=== PATIENT | female | born 1965 | race Caucasian/White ===

== ENCOUNTER 2017-01-04 13:24 | Emergency (ER) | payer MEDICARE ==
[~2017-01-04] VITALS: Ht 162.6 cm; Wt 90.0 kg
[2017-01-04 13:28] VITALS: BP 143/88; PULSE 83; RESP 16; TEMP 98.2; O2SAT 96
[2017-01-04] MEDS ORDERED: NORV2.5T PO (13:42)
[2017-01-04] MEDS ORDERED: SYNT112T PO (13:42)
[2017-01-04] MEDS ORDERED: CHOLESTEROL MED (13:42)
--- NOTE | 2017-01-04 15:09 | RADRPT ---
EXAM DATE/TIME: 01/04/2017 14:34 [facility] COMPARISON: No previous studies available for comparison. INDICATIONS : Fell and hit back of head. Head and neck pain. RADIATION DOSE: 60.64 CTDIvol (mGy) MEDICAL HISTORY : Hypertension. Cerebral palsy SURGICAL HISTORY : Cerebral implant ENCOUNTER: Initial ACUITY: 2 days PAIN SCALE: 4/10 LOCATION: occipital TECHNIQUE: Multiple contiguous axial images were obtained of the head. Using automated exposure control and adj ustment of the mA and/or kV according to patient size, radiation dose was kept as low as reasonably a chievable to obtain optimal diagnostic quality images. DICOM format image data is available electro nically for review and comparison. FINDINGS: There is no evidence for intracranial hemorrhage, mass effect, mass lesions, edema, or extra-axial fl uid collections. The visualized bony structures appear intact. The ventricles are normal size for t he patient's age. There are no signs of acute infarction for technique. Cerebral implants are presen t bilaterally posteriorly. CONCLUSION: Unremarkable study. Jaja Lacy MD on January 04, 2017 at 14:59 Board Certified Radiologist. This report was verified electronically.
--- NOTE | 2017-01-04 15:12 | RADRPT ---
EXAM DATE/TIME: 01/04/2017 14:49 [facility] COMPARISON: No previous studies available for comparison. INDICATIONS : Low back pain after falling MEDICAL HISTORY : Cerebral palsy SURGICAL HISTORY : Cerebral implant ENCOUNTER: Initial ACUITY: 1 day PAIN SCORE: 9/10 LOCATION: Lumbar spine FINDINGS: No appreciable compression deformities, spondylolisthesis, or spondylolysis is seen. Slight degenera tive changes are seen within the disc space and facets at L5-S1. Chronic atherosclerotic calcificatio ns are seen without any definite aneurysmal dilatations for technique. CONCLUSION: Chronic changes L5-S1. Jaja Lacy MD on January 04, 2017 at 15:10 Board Certified Radiologist. This report was verified electronically.
--- NOTE | 2017-01-04 15:17 | RADRPT ---
EXAM DATE/TIME: 01/04/2017 14:34 [facility] COMPARISON: No previous studies available for comparison. INDICATIONS : Fell and hit back of head. Head and neck pain. RADIATION DOSE: 26.17 CTDIvol (mGy) MEDICAL HISTORY : Hypertension. Cerebral palsy SURGICAL HISTORY : Cerebral implant ENCOUNTER: Initial ACUITY: 2 days PAIN SCALE: 4/10 LOCATION: Bilateral neck TECHNIQUE: Volumetric scanning of the cervical spine was performed. Multiplanar reconstructions in the sagittal, coronal and oblique axial planes were performed. Using automated exposure control and adjustment o f the mA and/or kV according to patient size, radiation dose was kept as low as reasonably achievable to obtain optimal diagnostic quality images. DICOM format image data is available electronically f or review and comparison. FINDINGS: VERTEBRAE: Normal vertebral body height. ALIGNMENT: No evidence of subluxation. A spinal stimulator lead is seen overlying the occiput C2-C3: Mild central bulge. No flattening of the cord. Neural foramina are patent bilaterally. C3-C4: The bony spinal canal is normal in size. No evidence of disc bulge or herniation. The neural forami na are bilaterally patent. C4-C5: There is disc space narrowing with a broad-based disc osteophyte complex eccentric to the left. Narro wing of the lateral recesses bilaterally but more pronounced on the left. Flattening of the ventral p ortion of the cord. Anterior to posterior dimension of the central canal in the midline is 10 mm. Unc overtebral hypertrophy without significant narrowing of the neural foramina. C5-C6: There is disc space narrowing with a broad-based disc osteophyte complex. Flattening of the ventral p ortion of the cord. Central canal measures 8 mm in the midline. Bilateral bony uncovertebral hypertro phy contributing to narrowing of the neural foramina and lateral recesses bilaterally. C6-C7: No disc bulge or protrusion. Central canal is patent. Bony uncovertebral hypertrophy on the left caus es moderate narrowing the left lateral recess and left neural foramen. The right are patent.C7-T1: The bony spinal canal is normal in size. No evidence of disc bulge or herniation. The neural forami na are bilaterally patent. CONCLUSION: 1. No fracture or dislocation. 2. Multilevel degenerative changes as detailed above. Jakob Vargas Jr., MD on January 04, 2017 at 15:11 Board Certified Radiologist. This report was verified electronically.
--- NOTE | 2017-01-04 15:30 | PD ---
HPI Chief Complaint: Back/ Neck Pain or Injury Time Seen by Provider: 14:10 Travel History International Travel<30 days: No Contact w/Intl Traveler<30days: No Traveled to known affect area: No History of Present Illness HPI 51-year-old female with history of cerebral palsy and a brain stimulator presents to the emergency room for evaluation of headache, neck pain, and low back pain after slip and fall yesterday. Patient was trying out her new handrail in her bathtub when she slipped on the tile and fell backwards striking her head on the tile and then landing on her coccyx/low back. She states she had immediate headache and neck pain. Back pain started a little later and began radiating down her right lower extremity. Her friend was with her and states she appeared dazed for about 30 minutes to an hour but has been normal since. Patient denies extreme headache, nausea, vomiting. She is not on any blood thinners. Denies upper or lower extremity paresthesias, saddle anesthesia, or loss of bowel or bladder control. She has taken Tylenol with moderate relief in symptoms. She normally ambulates with a walker and has been able to ambulate since falling. PFSH Past Medical History Hx Anticoagulant Therapy: No Cardiovascular Problems: Yes (HTN, CHOL) High Cholesterol: Yes Diabetes: No Hypertension: Yes Medical other: Yes (CEREBRAL PALSY, PREDIABETIC) Thyroid Disease: Yes ?: Not Past Surgical History Other Surgery: Yes (CEREBRAL IMPLANT) Social History Alcohol Use: No Tobacco Use: No Substance Use: No Allergies-Medications (Allergen,Severity, Reaction): Coded Allergies: Penicillin (Verified Allergy, Severe, 01/04/17) Reported Meds & Prescriptions Reported Meds & Active Scripts Active Reported [Cholesterol Med] Unknown Dose Norvasc (Amlodipine Besylate) 2.5 Mg Tab Unknown Dose PO DAILY Synthroid (Levothyroxine Sodium) 112 Mcg Tab 112 Mcg PO DAILY Review of Systems Except as stated in HPI: all other systems reviewed are Neg Physical Exam Narrative GENERAL: Well-developed, well-nourished female in no acute distress. Afebrile. Ambulatory. SKIN: Warm and dry. No erythema or ecchymosis. HEAD: Atraumatic. Normocephalic. No florian sign or raccoon eyes. EYES: PERRL, EOMI, no discharge or injection. No scleral icterus. ENT: Mucosa pink and moist. No erythema or exudates. No uvular edema. No uvular , palatal, or tonsillar deviation. Airway patent. EARS: Bilateral pinnae and external canals appear within normal limits. Bilateral tympanic membranes without erythema, dullness or perforation. No hemotympanum. NECK: Trachea midline. No JVD. No midline tenderness. Full range of motion. CARDIOVASCULAR: Regular rate and rhythm. No murmur appreciated. RESPIRATORY: No accessory muscle use. Clear to auscultation. Breath sounds equal bilaterally. No crackles, rales, wheezes, or rhonchi. BACK: No CVA tenderness. No rash. No point tenderness on palpation of the spine. NEUROLOGICAL: Awake and alert. Cranial nerves 2 through 12 intact. Motor grossly within normal limits. Normal speech. Strength 5/5 and equal in upper and lower extremities. 2+ patellar and Achilles reflexes and equal bilaterally. PSYCHIATRIC: Appropriate mood and affect; insight and judgment normal. Data Data Last Documented VS Vital Signs Date Time Temp Pulse Resp B/P Pulse Ox O2 Delivery O2 Flow Rate FiO2 01/04/17 13:28 98.2 83 16 143/[address] Brain W/O Iv Contrast(Rout) (01/04/17 ) Ct Cerv Spine W/O Contrast (01/04/17 ) Spine, Lumbar - Ltd (Ap & Lat) (01/04/17 ) MDM Medical Decision Making Medical Screen Exam Complete: Yes Emergency Medical Condition: Yes Medical Record Reviewed: Yes Differential Diagnosis Muscle spasm, headache, back pain, cervical strain, fracture, dislocation Narrative Course 51-year-old female with history of cerebral palsy presents to the emergency room for evaluation of headache, neck pain, and low back pain after slip and fall last night. Patient was kneeling when she fell backwards striking her head on tile before landing on her buttocks/low back. Immediate headache and neck pain and back pain started low while later. No focal neurological deficits. Her friend observed the whole thing and denies loss of consciousness. She was acting days for 30 minutes afterward but not since. She is not on blood thinners. CT of the brain is negative for acute abdomen. CT of the cervical spine is negative and lumbar back x-ray is negative. Patient is ambulatory with a walker. No extreme tenderness to palpation of the midline spine. Likely contusion and muscle strain. Discharged with instructions to take ibuprofen and follow up with a primary care physician or return for worsening symptoms. She understands and agrees to plan. Diagnosis Primary Impression: Acute headache Qualified Code: G44.319 - Acute post-traumatic headache, not intractable Additional Impressions: Low back pain Qualified Code: M54.41 - Acute midline low back pain with right-sided sciatica Cervical strain, acute Qualified Code: S16.1XXA - Cervical strain, acute, initial encounter Referrals: Primary Care Physician Patient Instructions: Acute Headache (ED), Back Pain (ED), Cervical Strain (ED) , General Instructions Additional Instructions: Rest and drink plenty of fluids. Take ibuprofen with food as directed, as needed for pain. Apply ice to the affected area for 20 minutes at a time, as needed for pain and swelling. Follow-up with a primary care physician. Return to the emergency room for worsening symptoms. Disposition: 01 DISCHARGE HOME Condition: Stable Lennie Monet Jan 04, 2017 15:30
== END 2017-01-04 15:47 | disposition home or self-care (01) ==
LOC: PHEFT 13:24
DX: G44.319 Acute post-traumatic headache, not intractable (principal); M54.41 Lumbago with sciatica, right side; S16.1XXA Strain of muscle, fascia and tendon at neck level, initial encounter; W18.2XXA Fall in (into) shower or empty bathtub, initial encounter; Y92.002 Bathroom of unspecified non-institutional (private) residence as the place of occurrence of the external cause
CPT/HCPCS: 70450; 72100; 72125; 99285

== ENCOUNTER 2017-04-11 19:55 | Emergency (ER) | payer MEDICARE ==
[~2017-04-11] VITALS: Ht 162.6 cm; Wt 87.6 kg
[~2017-04-11 19:55] MED LIST: CHOLESTEROL MED; NORV2.5T PO; SYNT112T PO
[2017-04-11 19:58] VITALS: BP 145/83; PULSE 103; RESP 16; TEMP 99; O2SAT 96
[2017-04-11 20:19] VITALS: BP 145/83; PULSE 103; RESP 16; TEMP 99
[2017-04-11] MEDS ORDERED: SODIUM CHLOR 0.9% 1000 ML INJ 1,000 ML IV SCH (20:23)
[2017-04-11] MEDS ORDERED: SODIUM CHLORIDE 0.9% FLUSH 10 ML FLUSH IV FLUSH PRN (20:30)
[2017-04-11] MEDS ORDERED: ONDANSETRON HCL 4 MG/2 ML VIAL IVP ONE (20:30)
[2017-04-11] MEDS ORDERED: MORPHINE SULFATE 4 MG/ML INJ IV PUSH ONE (20:30)
--- NOTE | 2017-04-11 20:35 | PD ---
HPI Chief Complaint: Abdominal Pain Time Seen by Provider: 20:11 Travel History International Travel<30 days: No Contact w/Intl Traveler<30days: No Traveled to known affect area: No History of Present Illness HPI The patient is a 52-year-old female who presents to the emergency department with her partner for abdominal pain. The patient notes a 2 day history of lower abdominal pain is started a left lower quadrant and now radiates to the suprapubic and right lower quadrant. The pain is moderate, worse with palpation, associated with nausea and decreased appetite. The patient denies any vomiting, diarrhea, or constipation. She does note mild urinary frequency but denies any dysuria or hematuria. The patient denies any previous abdominal surgeries. The patient denies , is currently perimenopausal, last menstrual cycle was several months ago. The patient's female partner also states there is no chance of . The patient does note subjective low-grade fevers without chills or sweats. She does also note decreased appetite over the last 2 days. Symptoms are moderate, worse with palpation, and there are no current alleviating factors. PFSH Past Medical History Hx Anticoagulant Therapy: No Cardiovascular Problems: Yes (HTN, CHOL) High Cholesterol: Yes Diabetes: No Hypertension: Yes Thyroid Disease: Yes ?: Not Past Surgical History Other Surgery: Yes (CEREBRAL IMPLANT) Social History Alcohol Use: No Tobacco Use: No Substance Use: No Allergies-Medications (Allergen,Severity, Reaction): Coded Allergies: penicillin G (Verified Allergy, Severe, 04/11/17) Reported Meds & Prescriptions Reported Meds & Active Scripts Active Reported [Cholesterol Med] Unknown Dose Norvasc (Amlodipine Besylate) 2.5 Mg Tab Unknown Dose PO DAILY Synthroid (Levothyroxine Sodium) 112 Mcg Tab 112 Mcg PO DAILY Review of Systems Except as stated in HPI: all other systems reviewed are Neg General / Constitutional: Positive: Fever (subjective) Cardiovascular: No: Chest Pain or Discomfort Respiratory: No: Shortness of Breath Gastrointestinal: Positive: Nausea, Abdominal Pain, No: Vomiting, Diarrhea Genitourinary: Positive: Urgency, Frequency, No: Dysuria, Hematuria Skin: No Rash Physical Exam Narrative GENERAL: Awake, alert, pleasant 52-year-old female who appears her stated age and is in no acute respiratory distress. SKIN: Focused skin assessment warm/dry. HEAD: Atraumatic. Normocephalic. EYES: Pupils equal and round. No scleral icterus. No injection or drainage. ENT: No nasal bleeding or discharge. Mucous membranes pink and moist. NECK: Trachea midline. No JVD. CARDIOVASCULAR: Regular rate and rhythm. No murmur appreciated. RESPIRATORY: No accessory muscle use. Clear to auscultation. Breath sounds equal bilaterally. GASTROINTESTINAL: Abdomen soft, tender to palpation left lower quadrant and suprapubic region, mild right lower quadrant tenderness. No guarding or rigidity. Back: No CVA tenderness. MUSCULOSKELETAL: No obvious deformities. No clubbing. No cyanosis. No edema. NEUROLOGICAL: Awake and alert. No obvious cranial nerve deficits. Motor grossly within normal limits. Slightly stuttering speech. PSYCHIATRIC: Appropriate mood and affect; insight and judgment normal. Data Data Last Documented VS Vital Signs Date Time Temp Pulse Resp B/P (MAP) Pulse Ox O2 Delivery O2 Flow Rate FiO2 04/11/17 21:53 81 16 128/69 (88) 93 Room Air 04/11/17 20:19 99.0 Orders Orders Complete Blood Count With Diff (04/11/17 20:23) Comprehensive Metabolic Panel (04/11/17 20:23) Lipase (04/11/17 20:23) Urinalysis - C+S If Indicated (04/11/17 20:23) Ct Abd/Pel W/O Iv Contrast (04/11/17 20:23) Iv Access Insert/Monitor (04/11/17 20:23) Ecg Monitoring (04/11/17 20:23) Oximetry (04/11/17 20:23) Morphine Inj (Morphine Inj) (04/11/17 20:30) Ondansetron Inj (Zofran Inj) (04/11/17 20:30) Sodium Chlor 0.9% 1000 Ml Inj (Ns 1000 M (04/11/17 20:23) Sodium Chloride 0.9% Flush (Ns Flush) (04/11/17 20:30) Urine Culture (04/11/17 20:33) Sodium Chlor 0.9% 1000 Ml Inj (Ns 1000 M (04/11/17 21:15) Ketorolac Inj (Toradol Inj) (04/11/17 21:45) Ciprofloxacin (Cipro) (04/11/17 22:15) Metronidazole 500 Mg Inj (Flagyl 500 Mg (04/11/17 22:15) Labs Laboratory Tests Test 04/11/17 20:33 White Blood Count 14.7 TH/MM3 Red Blood Count 5.46 MIL/MM3 Hemoglobin 16.3 GM/DL Hematocrit 48.2 % Mean Corpuscular Volume 88.3 FL Mean Corpuscular Hemoglobin 29.9 PG Mean Corpuscular Hemoglobin Concent 33.9 % Red Cell Distribution Width 11.7 % Platelet Count 275 TH/MM3 Mean Platelet Volume 9.0 FL Neutrophils (%) (Auto) 65.9 % Lymphocytes (%) (Auto) 21.4 % Monocytes (%) (Auto) 7.1 % Eosinophils (%) (Auto) 2.5 % Basophils (%) (Auto) 3.1 % Neutrophils # (Auto) 9.7 TH/MM3 Lymphocytes # (Auto) 3.1 TH/MM3 Monocytes # (Auto) 1.0 TH/MM3 Eosinophils # (Auto) 0.4 TH/MM3 Basophils # (Auto) 0.5 TH/MM3 CBC Comment DIFF FINAL Differential Comment Urine Color YELLOW Urine Turbidity CLEAR Urine pH 5.5 Urine Specific Celeste 1.023 Urine Protein NEG mg/dL Urine Glucose (UA) NEG mg/dL Urine Ketones NEG mg/dL Urine Occult Blood TRACE Urine Nitrite NEG Urine Bilirubin NEG Urine Leukocyte Esterase NEG Urine Squamous Epithelial Cells > 8 /hpf Urine Bacteria MOD /hpf Urine Mucus MOD /lpf Microscopic Urinalysis Comment CULTURE INDICATED Blood Urea Nitrogen 18 MG/DL Creatinine 0.98 MG/DL Random Glucose 112 MG/DL Total Protein 8.3 GM/DL Albumin 3.6 GM/DL Calcium Level 9.8 MG/DL Alkaline Phosphatase 106 U/L Aspartate Amino Transf (AST/SGOT) 20 U/L Alanine Aminotransferase (ALT/SGPT) 26 U/L Total Bilirubin 0.5 MG/DL Sodium Level 137 MEQ/L Potassium Level 4.0 MEQ/L Chloride Level 100 MEQ/L Carbon Dioxide Level 27.8 MEQ/L Anion Gap 9 MEQ/L Estimat Glomerular Filtration Rate 59 ML/MIN Lipase 214 U/L [facility] Medical Decision Making Medical Screen Exam Complete: Yes Emergency Medical Condition: Yes Medical Record Reviewed: Yes Interpretation(s) Laboratory Tests Test 04/11/17 20:33 White Blood Count 14.7 TH/MM3 Red Blood Count 5.46 MIL/MM3 Hemoglobin 16.3 GM/DL Hematocrit 48.2 % Mean Corpuscular Volume 88.3 FL Mean Corpuscular Hemoglobin 29.9 PG Mean Corpuscular Hemoglobin Concent 33.9 % Red Cell Distribution Width 11.7 % Platelet Count 275 TH/MM3 Mean Platelet Volume 9.0 FL Neutrophils (%) (Auto) 65.9 % Lymphocytes (%) (Auto) 21.4 % Monocytes (%) (Auto) 7.1 % Eosinophils (%) (Auto) 2.5 % Basophils (%) (Auto) 3.1 % Neutrophils # (Auto) 9.7 TH/MM3 Lymphocytes # (Auto) 3.1 TH/MM3 Monocytes # (Auto) 1.0 TH/MM3 Eosinophils # (Auto) 0.4 TH/MM3 Basophils # (Auto) 0.5 TH/MM3 CBC Comment DIFF FINAL Differential Comment Urine Color YELLOW Urine Turbidity CLEAR Urine pH 5.5 Urine Specific Celeste 1.023 Urine Protein NEG mg/dL Urine Glucose (UA) NEG mg/dL Urine Ketones NEG mg/dL Urine Occult Blood TRACE Urine Nitrite NEG Urine Bilirubin NEG Urine Leukocyte Esterase NEG Urine Squamous Epithelial Cells > 8 /hpf Urine Bacteria MOD /hpf Urine Mucus MOD /lpf Microscopic Urinalysis Comment CULTURE INDICATED Blood Urea Nitrogen 18 MG/DL Creatinine 0.98 MG/DL Random Glucose 112 MG/DL Total Protein 8.3 GM/DL Albumin 3.6 GM/DL Calcium Level 9.8 MG/DL Alkaline Phosphatase 106 U/L Aspartate Amino Transf (AST/SGOT) 20 U/L Alanine Aminotransferase (ALT/SGPT) 26 U/L Total Bilirubin 0.5 MG/DL Sodium Level 137 MEQ/L Potassium Level 4.0 MEQ/L Chloride Level 100 MEQ/L Carbon Dioxide Level 27.8 MEQ/L Anion Gap 9 MEQ/L Estimat Glomerular Filtration Rate 59 ML/MIN Lipase 214 U/L CT abdomen and pelvis without contrast reveals acute diverticulitis. No signs of perforation or abscess formation. Differential Diagnosis Differential diagnosis includes diverticulitis, nephrolithiasis, hydronephrosis , pyelonephritis, ovarian cyst, atypical appendicitis, UTI. Narrative Course IV was established, labs are drawn and sent, and the patient was placed on cardiac telemetry monitoring and continuous pulse oximetry monitoring. The patient was administered morphine, Zofran, and IV fluids. Noncontrast CT of the abdomen and pelvis was ordered. Patient's white count is slightly elevated , hemoglobin and hematocrit are elevated, most likely secondary to hemoconcentration from dehydration. LFTs and lipase are unremarkable. UA reveals moderate bacteria but no wbc's. CT the abdomen and pelvis reveals acute diverticulitis with no signs of perforation or abscess formation. The patient was reevaluated, still had mild pain, therefore, was administered Toradol intravenously. The patient's pain improved. The patient received Flagyl IV and Cipro by mouth. She will be discharged home on Cipro, Flagyl, and pain medications. The patient states she takes Tylenol 3 without difficulty , therefore, we'll be prescribed Tylenol 3. She will be provided a copy of her CT results and lab results at discharge. She is advised to follow-up with her primary physician and return if symptoms worsen or progress. Diagnosis Primary Impression: Diverticulitis Qualified Codes: K57.32 - Diverticulitis of large intestine without perforation or abscess without bleeding Patient Instructions: General Instructions Additional Instructions: Please provide the patient a copy of her CT results and lab results at discharge. Follow-up with your primary physician. Return if symptoms worsen or progress. Clear liquid diet and advance as tolerated. Medications as directed. Med/Other Pt SpecificInfo: Prescription(s) given Scripts Acetaminophen-Codeine (Tylenol-Codeine #3) 300-30 mg Tab 1 TAB PO Q4H Y for PAIN, #20 TAB 0 Refills Prov: Margarito Lockhart MD 04/11/17 Metronidazole (Flagyl) 500 Mg Tab 500 MG PO BID for Infection for 7 Days, #14 TAB 0 Refills Prov: Margarito Lockhart MD 04/11/17 Ciprofloxacin (Cipro) 500 Mg Tab 500 MG PO BID for Infection for 7 Days, #14 TAB 0 Refills Prov: Margarito Lockhart MD 04/11/17 Disposition: 01 DISCHARGE HOME Condition: Stable Margarito Lockhart MD Apr 11, 2017 20:35
[2017-04-11 20:51] LABS: AUTOMATED NEUTROPHIL # 9.7 TH/MM3 (1.8-7.7); BASOPHIL # 0.5 TH/MM3 (0-0.2); BASOPHIL % 3.1 % (0.0-2.0); EOSINOPHIL # 0.4 TH/MM3 (0-0.4); EOSINOPHIL % 2.5 % (0.0-4.0); HEMATOCRIT 48.2 % (35.0-46.0); HEMO FLAGS DIFF FINAL; LYMPH % 21.4 % (9.0-44.0); LYMPHOCYTE # 3.1 TH/MM3 (1.0-4.8); MEAN CELL VOLUME 88.3 FL (80.0-100.0); MEAN CORPUSCULAR HEMOGLOBIN 29.9 PG (27.0-34.0); MEAN CORPUSCULAR HGB CONC 33.9 % (32.0-36.0); MONO % 7.1 % (0.0-8.0); NEUT % 65.9 % (16.0-70.0); PLATELET COUNT 275 TH/MM3 (150-450); RED BLOOD COUNT 5.46 MIL/MM3 (4.00-5.30); RED CELL DISTRIBUTION WIDTH 11.7 % (11.6-17.2); WHITE BLOOD COUNT 14.7 TH/MM3 (4.0-11.0)
[2017-04-11 20:54] LABS: BLOOD, URINE TRACE (NEG); GLUCOSE,URINE NEG (NEG); KETONE, URINE NEG (NEG); NITRITE,URINE NEG (NEG); PH, URINE 5.5 (5.0-8.5)
[2017-04-11 20:56] LABS: CHLORIDE 100 MEQ/L (98-107); SODIUM (NA) 137 MEQ/L (136-145)
[2017-04-11 20:58] LABS: URINE COLOR YELLOW (YELLW/STRAW)
[2017-04-11 20:59] LABS: MUCUS URINE MOD /lpf (OCC)
[2017-04-11 21:00] LABS: ANION GAP 9 MEQ/L (5-15); BACTERIA, URINE MOD /hpf; BICARBONATE 27.8 MEQ/L (21.0-32.0); SQUAMOUS EPITHELIAL CELL URINE > 8 /hpf (0-5)
[2017-04-11 21:01] LABS: BLOOD UREA NITROGEN 18 MG/DL (7-18); COMMENT (UR) CULTURE INDICATED; CULTURE IF INDICATED CULTURE INDICATED
[2017-04-11 21:03] LABS: ALT (GPT) 26 U/L (10-53); AST (GOT) 20 U/L (15-37); GLOMERULAR FILTRATION RATE 59 ML/MIN (>89)
[2017-04-11 21:05] LABS: TOTAL BILIRUBIN ADULT 0.5 MG/DL (0.2-1.0)
[2017-04-11 21:06] VITALS: BP 143/82; PULSE 86; RESP 18; O2SAT 96
[2017-04-11 21:06] LABS: ALKALINE PHOSPHATASE 106 U/L (45-117)
[2017-04-11] MEDS ORDERED: SODIUM CHLOR 0.9% 1000 ML INJ 1,000 ML IV ONE (21:15)
[2017-04-11] MEDS ORDERED: KETOROLAC TROMETHAMINE 30 MG/ML (IVP) VIAL IV PUSH ONE (21:45)
[2017-04-11 21:53] VITALS: BP 128/69; PULSE 81; RESP 16; O2SAT 93
--- NOTE | 2017-04-11 22:07 | RADRPT ---
EXAM DATE/TIME: 04/11/2017 21:31 [facility] COMPARISON: No previous studies available for comparison. INDICATIONS : Left lower quadrant pain. ORAL CONTRAST: No oral contrast ingested. RADIATION DOSE: 18.67 CTDIvol (mGy) MEDICAL HISTORY : Hypertension. Diverticulosis. SURGICAL HISTORY : Cerebral implant. ENCOUNTER: Initial ACUITY: 2 days PAIN SCALE: 8/10 LOCATION: Left lower quadrant TECHNIQUE: Volumetric scanning of the abdomen and pelvis was performed. Using automated exposure control and ad justment of the mA and/or kV according to patient size, radiation dose was kept as low as reasonably achievable to obtain optimal diagnostic quality images. DICOM format image data is available electro nically for review and comparison. FINDINGS: CT Abdomen: The liver, spleen, pancreas, adrenals are unremarkable. There are faint areas of fluffy c alcifications in the calyces of both kidneys bilaterally without definable stone. There is no uretera l stone and there is no hydronephrosis on either side. There is no evidence for any appreciable path ological adenopathy, free fluid, or bowel obstruction. CT pelvis: There is no evidence for mass, abscess formation, or any significant adenopathy within the pelvis. Moderate diverticulosis is present particularly involving the sigmoid colon with one area of acute diverticulitis at the junction of the descending colon with inflammation of the pericolonic fa t plane and no signs of perforation or abscess formation. CONCLUSION: Acute diverticulitis. Jaja Lacy MD on April 11, 2017 at 22:02 Board Certified Radiologist. This report was verified electronically.
[2017-04-11] MEDS ORDERED: CIPROFLOXACIN 500 MG TAB PO ONE (22:15)
[2017-04-11] MEDS ORDERED: metroNIDAZOLE 500 MG INJ 100 ML IV ONE (22:15)
[2017-04-11] MEDS ORDERED: METR-1 PO (22:20)
[2017-04-11] MEDS ORDERED: TYLETAB34 PO (22:20)
[2017-04-11] MEDS ORDERED: CIPR-9 PO (22:20)
[2017-04-11 22:48] VITALS: RESP 16
[2017-04-11 23:40] VITALS: BP 114/72
== END 2017-04-11 23:48 | disposition home or self-care (01) ==
LOC: PHED 19:55
DX: K57.32 Diverticulitis of large intestine without perforation or abscess without bleeding (principal); I10 Essential (primary) hypertension; E78.5 Hyperlipidemia, unspecified; E07.9 Disorder of thyroid, unspecified
CPT/HCPCS: 74176; 80053; 81001; 83690; 85025; 87086; 96361; 96365; 96375; 99285; J1885; J2270; J2405; J7030